=== PATIENT | female | born 1955 | race Caucasian/White ===

== ENCOUNTER 2020-04-05 02:29 | Emergency (ER) | payer MEDICARE, BC ==
[~2020-04-05] VITALS: Ht 170.2 cm; Wt 83.9 kg
[2020-04-05 02:42] VITALS: BP 146/73
== END 2020-04-05 03:55 | disposition home or self-care (01) ==
LOC: ER 02:43
DX: S60.454A Superficial foreign body of right ring finger, initial encounter (principal); W49.04XA Ring or other jewelry causing external constriction, initial encounter; Y93.89 Activity, other specified; Y92.89 Other specified places as the place of occurrence of the external cause; Y99.8 Other external cause status